=== PATIENT | female | born 1980 | race Caucasian/White ===

== ENCOUNTER 2018-06-22 07:51 | Outpatient (CLI) | payer OTHER, SELFPAY ==
[2018-06-22 07:56] VITALS: BP 109/75; PULSE 80; RESP 18; TEMP 36.3; O2SAT 97
== END 2018-06-22 07:52 ==
PROVIDERS: PCP Internal Medicine; Visit Provider Preventive Medicine Occupational Medicine
DX: M54.12 Radiculopathy, cervical region (principal)

== ENCOUNTER 2018-07-20 10:30 | Outpatient (RCR) | payer OTHER, SELFPAY ==
--- NOTE | 2018-06-21 12:35 | PTTR_ITS ---
DATE: 06/21/18 SUBJECTIVE: Lisa states [facility]. She continues to get relief after sessions, particularly with manual cervical traction, although symptoms typically return that night. She is not sure if she will be receiving further injections or not. She requested a note be sent to Dr. Hedrick prior to her appointment with him tomorrow. OBJECTIVE: Manual therapy: ([id number]). Cervical ROM shows continued limitations in all planes of motion. She does have restrictions into left cervical rotation to 50 , only, compared to 70 to the right with associated superior shoulder and ness scapular pain. She has (+) cervical quadrant test to the left with reproduction of similar symptoms. UE strength testing shows diffuse weakness throughout the UE musculature with 4- /5 for shoulder flexion, abduction, biceps, shoulder internal and external rotation. Gentle manual cervical traction and suboccipital release. Patient received soft tissue mobs and connective tissue mobs throughout the cervical paraspinals. She rec'd connective tissue mobs to the left upper trapezius as well as TP release applied here. This was followed by sustained stretching of the left scalenes and upper trapezius. Therapeutic procedures ([id number]). * x See flow sheet: instruction in early Cervical Stabilization program. She tolerated this well. She was instructed in supine chin tuck with introduction of bug exercises, which she tolerated to only 90 of left shoulder flexion due to increasing shoulder and ness scapular pain. She also completed chin tuck with scapular retraction. Attempted introduction of isometric abduction with yellow t-band resistance, although patient was unable to tolerate this. Instead, simply performed scapular retraction with 10 second holds x10 repetitions within her tolerable range. She will begin completing these at home as wel. Direct treatment time: 30 minutes. SS/gc
--- NOTE | 2018-06-23 16:00 | PTTR_ITS ---
DATE: 06/23/18 SUBJECTIVE: Lisa states she met with Dr. Darby at the pain clinic yesterday. She states that they deferred on further trigger point injections and Dr. Darby insinuated to her that her felt her pain was related to her cervical spine. He has encouraged her to continue with PT, and also discussed options for injections with her. This information will be looked over by her showcase trimmer and she will make a decision from there. In the meantime, she would like to continue with PT intervention. She does get some temporary relief with mobilization, although symptoms return later that day. Manual therapy: ([id number]). Began with manual cervical traction which patient tolerates well. She receives sustained stretching into R sidebending as well as deep tissue mobilization and myofascial release throughout the cervical paraspinals and L upper trap. She received skin rolling techniques and muscle bending along the paraspinals as well as trigger point release to the L paraspinals and L upper trap. She received grade 2 PA mobilizations throughout the lumbar segments followed by further manual cervical traction. She was instructed in wall push ups with verbal and tactile cues for appropriate chin tuck. During completion she is limited scap, thoracic movement on the L. She required tactile cues for appropriate scap/retraction with excellent carry over. Direct treatment time: 30 mins Total treatment time: 30 mins A/P: Will hold on PT next week, as I will be out of the clinic and patient prefers not to see any other providers. Will plan to continue 2x a week after that point. SS/dl
--- NOTE | 2018-06-30 09:50 | PTTR_ITS ---
DATE: 06/30/18 SUBJECTIVE: Ashley states that her shoulder is feeling really good today.She was placed on ibuprofen and an antibiotic for a tooth infection, which she feels has made a big difference in her pain. OBJECTIVE: Manual therapy: ([id number]).Today's session consisted of manual mobilization of the cervical spine. Began in supine position with gentle manual cervical traction and PROM. Pt has significant pain with L rotation. She received PA mobilizations grade III throughout the cervical segments, followed by suboccipital release and DTM throughout the cervical paraspinals and upper traps. She received trigger point release to the L upper trap with good tolerance and to the L posterior scalene. She also received segmental side glides at grade III Post-mobilization, she does report well managed symptoms. Direct treatment time: 30 min Total treatment time: 30 min Assessment/Plan: Pt has a great deal of questions about appropriate activity levels, what she can and cant do, etc... I have encouraged her to increase activity as much as she is able to tolerance. I also do feel that improving active use of the LUE and continuing to introduce exercises for non-painful loading of the UE will be effective at improving muscle strength and reducing her chronic pain levels. SS/fw
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
--- NOTE | 2018-07-07 11:20 | PTTR_ITS ---
DATE: 07/07/18 SUBJECTIVE: Lisa states that her shoulder and arm were very sore after her last session. She has been working on the squats, which she finds challenging but is able to manage. She also tried working with her bow, which she's been unable to do since her injury. She states that it was hard to do, but that she felt good getting back to some of her normal activities. Compliant with HEP: x Yes No OBJECTIVE: Manual therapy: ([id number]): Today's session consisted of manual mobilization of the cervical spine, beginning with gentle manual cervical traction and suboccipital release. She received manual stretching to the left scalenes and levator scap, followed by grade II PA mobs to the cervical segments. She received TrP release to the posterior scalene, where she continues to have significant soft tissue tightness and exacerbation of paresthesias in the LUE. Direct treatment time: 30 minutes Total treatment time: 30 minutes
--- NOTE | 2018-07-11 11:39 | PTTR_ITS ---
DATE: 07/11/18 SUBJECTIVE: Ashley states that overall she is feeling about the same. She does note that she's doing more at home, which she finds promising. She has not heard back about her OTD traction unit yet. Compliant with HEP: x Yes No OBJECTIVE: Manual therapy: ([id number]): Began with gentle manual cervical traction, followed by suboccipital release. Ashley received grade II PA mobs throughout the cervical segments, where she has pain reports, although no significant hypomobility. She continues to have significant soft tissue tightness through the left scalenes and upper trap, where she received DTM. She received TrP release to the posterior scalene and levator scap. This was followed by sidelying passive PNFs within pain tolerance. She was then instructed in NuStep biking at level 0 x 5 minutes, with need for cues for appropriate positioning initially, after which she's able to complete independently. Direct treatment time: 30 minutes Total treatment time: 35 minutes
--- NOTE | 2018-07-13 12:30 | NT_ITS ---
07/13/18 Canc her appt today, no reason given. SS/dl
--- NOTE | 2018-07-20 11:28 | PTTR_ITS ---
DATE: 07/20/18 SUBJECTIVE: Ashley states that she is feeling very uncomfortable. She has been continuing with her HEP, and although the exercises seem to be getting easier, her pain is essentially unchanged. Compliant with HEP: x Yes No OBJECTIVE: Manual therapy: ([id number]): Patient continues to demonstrate significantly increased tone in the left upper trap and levator scap, with hypersensitivity throughout the paraspinals. She received suboccipital release and manual cervical traction, followed by DTM throughout the parascapular musculature. She received TrP release to the left upper trap and levator scap with good tissue softening achieved. She also received grade II PA mobs throughout all cervical segments. Direct treatment time: 30 minutes Total treatment time: 40 minutes, with 8 minutes of NuStep biking at L3
== END 2018-07-21 23:59 | disposition home or self-care (01) ==
LOC: PT 10:30
PROVIDERS: PCP Internal Medicine; Referring Provider Nurse Practitioner Family; Visit Provider Nurse Practitioner Family
DX: M54.2 Cervicalgia (principal); M79.1 Myalgia
CPT/HCPCS: 97110; 97140

== ENCOUNTER 2018-08-29 08:41 | Outpatient (CLI) | payer MEDICAID, SELFPAY ==
--- NOTE | 2018-08-29 06:00 | DI.RAD_ITS ---
SYMPTOMS/DIAGNOSIS: CERVICAL RADICULOPATHY PAIN CLINIC CERVICAL SPINE: Fluoroscopy Time: 22.5 sec Fluoroscopy was utilized by Dr. Darby during the performance of a cervical epidural steroid injection. Please refer to the procedure report for complete details.
[2018-08-29 09:09] VITALS: BP 121/79; PULSE 77; RESP 16; TEMP 36.4; O2SAT 98
[2018-08-29] MEDS: Midazolam 2 MG/2 ML VIAL IVP ×2 (09:34→09:37)
[2018-08-29] MEDS: Lactated Ringers 1,000 ML 80 ML IV (09:36)
[2018-08-29 09:44] VITALS: BP 127/86; PULSE 79; RESP 15; O2SAT 98
--- NOTE | 2018-08-29 09:52 | PDOC.PAIN ---
Pain Clinic Procedure Note Current Active Problems Problem Status Onset Cervical radiculopathy Acute Cervical Epidural Steroid Injection BLUE CHOI has been [facility] for cervical epidural steroid injection. COMMENTS: I did review my evaluation with the patient from 06/22/18. Ms. CHOI was interviewed and the medical record reviewed. There were no medical, pharmacologic, radiographic or other structural contraindications to attempting fluoroscopically guided epidural steroid injection. Risks and expected side effects as well as potential benefit of the procedure were reviewed with Ms. CHOI , and Ms. CHOI voiced concerns addressed. The printed consent form was signed and witnessed. Standard time-out procedure was performed. The patient was placed in the prone position on the fluoroscopy table and automated blood pressure cuff and pulse oximeter applied. The skin entry point for entering the epidural space by a midline C7-T1 interlaminar approach was identified under fluoroscopy and marked. Following thorough Chlorhexadine preparation of the skin and draping and 1% lidocaine infiltration of the skin entry point and subcutaneous tissues, an 18 gauge Tuohy needle was placed under fluoroscopic guidance and with loss of resistance technique into the C7-T1 epidural space. Upon needle placement and loss of resistance there were no paresthesiae or return of blood or CSF through the needle. 1 cc of Omnipaque 240 was injected with clear epidural spread in the A/P, lateral and oblique views. 10 mg of preservative free Dexomethasone was injected with no unusual discomfort expressed by Ms. CHOI. This was flushed with 1 cc of normal saline. Ms. CHOI 's vital signs were stable throughout the procedure and were as recorded in the docflowsheet by the nursing staff. Follow up plans and appointments were discussed with the patient Post procedure instruction was given as documented in nursing documentation and having met discharge criteria, STEPH was [facility] from the [facility]. COMMENTS: This procedure can be completed up to 3 times per 12 months if needed. Lefty Darby DO, MPH ABPMR - Subspecialty Board Certification in Pain Medicine CC: Joshua Grimaldo
[2018-08-29] MEDS: Dexamethasone Sod. Phos./Pres-Free 10 MG/ML VIAL IJ (10:04)
[2018-08-29] MEDS: Omnipaque 240 MG/ML 50 ML BTL IJ (10:05)
== END 2018-08-29 09:01 ==
PROVIDERS: PCP Internal Medicine; Visit Provider Preventive Medicine Occupational Medicine
DX: M54.12 Radiculopathy, cervical region (principal)
CPT/HCPCS: 62321; 72040; J2250; Q9967

== ENCOUNTER 2019-07-26 13:31 | Outpatient (REF) | payer MEDICAID, SELFPAY ==
[2019-07-26 20:00] LABS: BUN 7 mg/dL (7-18); CREATININE 0.91 mg/dL (0.55-1.02); Calcium 8.6 mg/dL (8.5-10.1); Calculated LDL 161 mg/dL; Chloride 103 mmol/L (98-107); Cholesterol 230 mg/dL (50-200); Glucose 95 mg/dL (70-100); HDL Cholesterol 44 mg/dL (40-60); Potassium 4.4 mmol/L (3.5-5.1); Sodium 137 mmol/L (136-145); Triglyceride 127 mg/dL (30-150)
== END 2019-07-26 13:51 ==
LOC: NCHCN 13:31
PROVIDERS: PCP Internal Medicine; Visit Provider Nurse Practitioner Family
DX: E04.1 Nontoxic single thyroid nodule (principal); E87.6 Hypokalemia; Z13.220 Encounter for screening for lipoid disorders
CPT/HCPCS: 80048; 80061; 84443

== ENCOUNTER 2019-09-12 17:54 | Outpatient (REF) | payer MEDICAID, SELFPAY ==
[2019-09-12 20:20] LABS: HCG Qual (Serum) Negative
== END 2019-09-12 18:14 ==
LOC: NCHCN 17:54
PROVIDERS: PCP Internal Medicine; Visit Provider Internal Medicine
DX: F17.200 Nicotine dependence, unspecified, uncomplicated (principal); Z33.1 Pregnant state, incidental
CPT/HCPCS: 84703

== ENCOUNTER 2020-11-03 20:23 | Outpatient (REF) | payer MEDICAID, SELFPAY ==
[2020-11-06 21:22] LABS: COVID-19 RT-PCR Result NEGATIVE (Negative)
== END 2020-11-03 20:43 ==
LOC: NCHCN 20:23
PROVIDERS: PCP Internal Medicine; Visit Provider Nurse Practitioner Family
DX: J06.9 Acute upper respiratory infection, unspecified (principal)
CPT/HCPCS: U0003

== ENCOUNTER 2021-04-08 22:11 | Outpatient (REF) | payer MEDICAID, SELFPAY ==
[2021-04-08 20:47] LABS: Iron 25 ug/dL (50-170); Total Iron Binding Capacity 289 ug/dL (250-450); Transferrin Sat 9 % (15-50)
[2021-04-08 20:54] LABS: Abs Immature Grans 0.03 10^3/uL (0.0-0.06); Absolute Basophil Count 0.08 10^3/uL (0.0-0.2); Absolute Eosinophil Count 0.26 10^3/uL (0.0-0.7); Absolute Monocyte Count 0.57 10^3/uL (0.1-0.8); Absolute Neutrophil Count 5.45 10^3/uL (1.2-6.7); Basophils % 0.9; HCT 42.3 % (36.0-46.0); Immature Grans % 0.3; Lymphocytes % 26.5; MCH 32.1 pg (27.0-33.0); MCHC 33.1 % (32.0-36.0); MPV 10.3 fL (8.0-11.0); Monocytes % 6.6; Neutrophils % 62.7; Nucleated RBC 0 %; Platelet Count 312 10^3/uL (130-400); RBC 4.36 10^6/uL (3.93-5.22); RDW 13.9 % (11.7-14.6); RDW-SD 50.4 fL; WBC 8.69 10^3/uL (4.4-10.8)
[2021-04-08 20:59] LABS: Anion Gap 11.9 mmol/L (3-11); BUN 10 mg/dL (7-18); CO2 23.1 mmol/L (21.0-32.0); CREATININE 0.8 mg/dL (0.55-1.02); Calcium 8.5 mg/dL (8.5-10.1); Chloride 104 mmol/L (98-107); Ferritin 36 ng/mL (8-252); Glucose 94 mg/dL (74-106); LDL CHOLESTEROL 118 mg/dL (<100); Magnesium 2.2 mg/dL (1.8-2.4); Potassium 4.3 mmol/L (3.5-5.1); Sodium 139 mmol/L (136-145)
[2021-04-09 16:18] LABS: Rheumatoid Factor <8.6 IU/mL (<12.0)
[2021-04-10 09:07] LABS: Cyclic Citrullinated Peptide <2.5 U/mL (<5.0)
== END 2021-04-08 22:12 | disposition home or self-care (01) ==
LOC: NCHCN 22:11
PROVIDERS: PCP Internal Medicine; Visit Provider Physician Assistant
DX: R25.2 Cramp and spasm (principal); Z82.61 Family history of arthritis; Z82.49 Family history of ischemic heart disease and other diseases of the circulatory system; R23.8 Other skin changes; R79.89 Other specified abnormal findings of blood chemistry
CPT/HCPCS: 80048; 83721; 86200; 82728; 83540; 83550; 83735; 85025; 86431

== ENCOUNTER 2021-06-01 17:20 | Outpatient (REF) | payer MEDICAID, SELFPAY ==
[2021-06-03 14:12] LABS: COVID-19 RT-PCR UVMMC Result Negative (Negative)
== END 2021-06-01 17:21 | disposition home or self-care (01) ==
LOC: NCHCN 17:20
PROVIDERS: PCP Internal Medicine; Visit Provider Nurse Practitioner Family
DX: J02.9 Acute pharyngitis, unspecified (principal); Z20.822 Contact with and (suspected) exposure to COVID-19
CPT/HCPCS: U0003

== ENCOUNTER 2021-06-30 18:24 | Outpatient (REF) | payer MEDICAID, SELFPAY ==
[2021-07-02 12:30] LABS: COVID-19 RT-PCR UVMMC Result Negative (Negative)
== END 2021-06-30 18:25 | disposition home or self-care (01) ==
LOC: NCHCN 18:24
PROVIDERS: PCP Internal Medicine; Visit Provider Nurse Practitioner Family
DX: Z20.822 Contact with and (suspected) exposure to COVID-19 (principal)
CPT/HCPCS: U0003

== ENCOUNTER 2021-08-07 14:44 | Outpatient (REF) | payer MEDICAID, SELFPAY ==
[2021-08-09 16:10] LABS: COVID-19 RT-PCR UVMMC Result Negative (Negative)
== END 2021-08-07 14:45 | disposition home or self-care (01) ==
LOC: NCHCN 14:44
PROVIDERS: PCP Internal Medicine; Visit Provider Internal Medicine
DX: Z20.822 Contact with and (suspected) exposure to COVID-19 (principal); R05 Cough; R06.2 Wheezing
CPT/HCPCS: U0003

== ENCOUNTER 2021-10-06 12:17 | Outpatient (REF) | payer MEDICAID, SELFPAY ==
[2021-10-08 10:18] LABS: COVID-19 RT-PCR UVMMC Result Negative (Negative)
== END 2021-10-06 12:18 | disposition home or self-care (01) ==
LOC: NCHCN 12:17
PROVIDERS: PCP Internal Medicine; Visit Provider Nurse Practitioner Family
DX: Z20.822 Contact with and (suspected) exposure to COVID-19 (principal); R05.8 Other specified cough
CPT/HCPCS: U0003

== ENCOUNTER 2022-03-12 17:59 | Outpatient (REF) | payer MEDICAID, SELFPAY | END 2022-03-12 18:00 | disposition home or self-care (01) | LOC: NCHCN 17:59 | PROVIDERS: PCP Internal Medicine; Visit Provider Nurse Practitioner Family | DX: J02.9 Acute pharyngitis, unspecified (principal) | CPT/HCPCS: 87070 ==

== ENCOUNTER 2022-11-23 17:48 | Outpatient (REF) | payer MEDICAID, SELFPAY ==
[2022-11-23 19:52] LABS: Anion Gap 5.9 mmol/L (3-11); BUN 6 mg/dL (7-18); CO2 27.1 mmol/L (21.0-32.0); CREATININE 0.9 mg/dL (0.55-1.02); Calcium 8.5 mg/dL (8.5-10.1); Chloride 106 mmol/L (98-107); Estimated GFR 80.84 (mL/min/1.73m2); Glucose 90 mg/dL (74-106); Potassium 4.3 mmol/L (3.5-5.1); Sodium 139 mmol/L (136-145)
[2022-11-27 05:50] LABS: Codeine Negative ng/mL (Cutoff: 25); Dihydrocodeine Negative ng/mL (Cutoff: 25); Hydrocodone Negative ng/mL (Cutoff: 25); Hydromorphone Negative ng/mL (Cutoff: 25); Morphine Negative ng/mL (Cutoff: 25); Naloxone Negative ng/mL (Cutoff: 25); Norhydrocodone Negative ng/mL (Cutoff: 25); Noroxycodone 423 ng/mL (Cutoff: 25); Noroxymorphone Negative ng/mL (Cutoff: 25); Opiates Interpretation Positive.
== END 2022-11-23 17:49 | disposition home or self-care (01) ==
LOC: NCHCN 17:48
PROVIDERS: PCP Nurse Practitioner Family; Visit Provider Nurse Practitioner Family
DX: J44.9 Chronic obstructive pulmonary disease, unspecified (principal); Z92.29 Personal history of other drug therapy; R82.5 Elevated urine levels of drugs, medicaments and biological substances
CPT/HCPCS: 80048; 80361; 80362; 80365

== ENCOUNTER 2022-12-13 19:33 | Outpatient (REF) | payer MEDICAID, SELFPAY ==
[2022-12-20 12:52] LABS: 2-OH-Ethyl-Flurazepam Negative ng/mL (Cutoff: 10); 7-NH-Clonazepam 82 ng/mL (Cutoff: 10); 7-NH-Flunitrazepam Negative ng/mL (Cutoff: 10); Alpha OH-Alprazolam Negative ng/mL (Cutoff: 10); Alpha-OH Midazolam Negative ng/mL (Cutoff: 10); Alpha-OH-Triazolam Negative ng/mL (Cutoff: 10); Alprazolam Negative ng/mL (Cutoff: 10); Benzodiazepines Interpretation Positive.; Chlordiazepoxide Negative ng/mL (Cutoff: 10); Clobazam Negative ng/mL (Cutoff: 10); Clonazepam Negative ng/mL (Cutoff: 10); Diazepam Negative ng/mL (Cutoff: 10); Flurazepam Negative ng/mL (Cutoff: 10); Lorazepam Negative ng/mL (Cutoff: 10); Midazolam Negative ng/mL (Cutoff: 10); N-Desmethylclobazam Negative ng/mL (Cutoff: 10); Prazepam Negative ng/mL (Cutoff: 10); Temazepam Negative ng/mL (Cutoff: 10); Triazolam Negative ng/mL (Cutoff: 10); Zolpidem Carboxylic acid Negative ng/mL (Cutoff: 10)
== END 2022-12-13 19:34 | disposition home or self-care (01) ==
LOC: NCHCN 19:33
PROVIDERS: PCP Nurse Practitioner Family; Visit Provider Nurse Practitioner Family
DX: F32.89 Other specified depressive episodes (principal); F41.8 Other specified anxiety disorders; Z79.899 Other long term (current) drug therapy
CPT/HCPCS: 80346

== ENCOUNTER 2022-12-28 12:18 | Outpatient (REF) | payer MEDICAID, SELFPAY ==
--- NOTE | 2022-12-28 11:30 | PAPFT_PTH ---
PATIENT: Lisa Sims LOC: [facility]#:[id number] AGE/SX: 42/F ROOM: RE12/28/[address]: Joni Go : 1980 BED: DIS: 12/28/2022 SPEC #: [id number] RECD: 12/28/22 18:32 STATUS: MYRTLE REArya #: [id number] IMAN: 12/28/22 11:[address]: Caroline Golaide DEPT: [facility] Cytology RECD BY: Christen Mckee Tissues: 1 - CX/ENDOCX FOR PAP SMEARS Procedures: PAP THIN PREP/UVM Screening HPV DNA PROBE Comments: [id number]
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
[2022-12-28 19:44] LABS: ALT 11 U/L (14-59); AST 16 U/L (15-37); Albumin 3.7 g/dL (3.4-5.0); Alkaline Phosphatase 81 U/L (46-116); Bilirubin, Total 0.2 mg/dL (0.2-1.0); Calculated LDL 160 mg/dL (<100); Cholesterol 230 mg/dL (<200); HDL Cholesterol 53 mg/dL (40-60); Total Protein 7.6 g/dL (6.4-8.2); Triglyceride 85 mg/dL (<150)
[2022-12-28 20:07] LABS: Bilirubin, Direct 0.1 mg/dL (0.0-0.2)
== END 2022-12-28 12:19 | disposition home or self-care (01) ==
LOC: NCHCN 12:18
PROVIDERS: PCP Nurse Practitioner Family; Visit Provider Nurse Practitioner Family
DX: Z12.4 Encounter for screening for malignant neoplasm of cervix (principal); E78.5 Hyperlipidemia, unspecified; A59.01 Trichomonal vulvovaginitis; Z11.51 Encounter for screening for human papillomavirus (HPV)
CPT/HCPCS: 80061; 80076; 88142; 87624

== ENCOUNTER 2023-04-21 12:28 | Outpatient (REF) | payer MEDICAID, SELFPAY ==
[2023-04-21 19:15] LABS: Anion Gap 9.8 mmol/L (3-11); BUN 9 mg/dL (7-18); CO2 24.2 mmol/L (21.0-32.0); CREATININE 0.9 mg/dL (0.55-1.02); Calcium 8.8 mg/dL (8.5-10.1); Chloride 104 mmol/L (98-107); Estimated GFR 80.34 (mL/min/1.73m2); Glucose 108 mg/dL (74-106); Potassium 4.7 mmol/L (3.5-5.1); Sodium 138 mmol/L (136-145)
== END 2023-04-21 12:29 | disposition home or self-care (01) ==
LOC: NCHCN 12:28
PROVIDERS: PCP Nurse Practitioner Family; Visit Provider Nurse Practitioner Family
DX: E78.5 Hyperlipidemia, unspecified (principal); E66.8 Other obesity
CPT/HCPCS: 80048

== ENCOUNTER 2023-06-21 16:27 | Outpatient (REF) | payer MEDICAID, SELFPAY ==
[2023-07-03 01:35] LABS: 2-OH-Ethyl-Flurazepam Negative ng/mL (Cutoff: 10); 7-NH-Clonazepam 476 ng/mL (Cutoff: 10); 7-NH-Flunitrazepam Negative ng/mL (Cutoff: 10); Alpha OH-Alprazolam Negative ng/mL (Cutoff: 10); Alpha-OH Midazolam Negative ng/mL (Cutoff: 10); Alpha-OH-Triazolam Negative ng/mL (Cutoff: 10); Alprazolam Negative ng/mL (Cutoff: 10); Benzodiazepines Interpretation Positive.; Chlordiazepoxide Negative ng/mL (Cutoff: 10); Clobazam Negative ng/mL (Cutoff: 10); Clonazepam 19 ng/mL (Cutoff: 10); Diazepam Negative ng/mL (Cutoff: 10); Flurazepam Negative ng/mL (Cutoff: 10); Lorazepam Negative ng/mL (Cutoff: 10); Midazolam Negative ng/mL (Cutoff: 10); N-Desmethylclobazam Negative ng/mL (Cutoff: 10); Prazepam Negative ng/mL (Cutoff: 10); Temazepam Negative ng/mL (Cutoff: 10); Triazolam Negative ng/mL (Cutoff: 10); Zolpidem Carboxylic acid Negative ng/mL (Cutoff: 10)
== END 2023-06-21 16:28 | disposition home or self-care (01) ==
LOC: NCHCN 16:27
PROVIDERS: PCP Nurse Practitioner Family; Visit Provider Nurse Practitioner Family
DX: F41.8 Other specified anxiety disorders (principal); Z51.81 Encounter for therapeutic drug level monitoring; Z79.899 Other long term (current) drug therapy
CPT/HCPCS: 80346

== ENCOUNTER 2023-06-24 12:54 | Outpatient (REF) | payer MEDICAID, SELFPAY ==
[2023-06-24 13:06] LABS: Abs Immature Grans 0.03 10^3/uL (0.0-0.06); Absolute Eosinophil Count 0.36 10^3/uL (0.0-0.7); Absolute Lymphocyte Count 1.37 10^3/uL (1.2-3.4); Absolute Monocyte Count 0.56 10^3/uL (0.1-0.8); Absolute Neutrophil Count 5.27 10^3/uL (1.2-6.7); Basophils % 1.3; Eosinophils % 4.7; HCT 42.3 % (36.0-46.0); HGB 13.8 g/dL (11.2-15.7); Immature Grans % 0.4; Lymphocytes % 17.8; MCH 30.5 pg (27.0-33.0); MCHC 32.6 % (32.0-36.0); MCV 93 fL (80-95); Monocytes % 7.3; Neutrophils % 68.5; Platelet Count 337 10^3/uL (130-400); RBC 4.53 10^6/uL (3.93-5.22); RDW 15.1 % (11.7-14.6); WBC 7.69 10^3/uL (4.4-10.8)
[2023-06-27 08:14] LABS: IgE 38 IU/mL (<158)
== END 2023-06-24 12:55 | disposition home or self-care (01) ==
LOC: LBN 12:54
PROVIDERS: PCP Nurse Practitioner Family; Visit Provider Student in an Organized Health Care Education/Training Program
DX: J45.909 Unspecified asthma, uncomplicated (principal)
CPT/HCPCS: 82785; 85025

== ENCOUNTER 2024-05-02 13:09 | Outpatient (REF) | payer MEDICAID, SELFPAY ==
[2024-05-02 22:12] LABS: Hemoglobin A1C 5.6 % (<5.7)
[2024-05-02 22:29] LABS: ALT 17 U/L (14-59); AST 14 U/L (15-37); Albumin 3.7 g/dL (3.4-5.0); Alkaline Phosphatase 90 U/L (46-116); Anion Gap 9.3 mmol/L (3-11); BUN 6 mg/dL (7-18); Bilirubin, Total 0.3 mg/dL (0.2-1.0); CO2 23.7 mmol/L (21.0-32.0); CREATININE 0.9 mg/dL (0.55-1.02); Calcium 8.5 mg/dL (8.5-10.1); Calculated LDL 188 mg/dL (<100); Chloride 104 mmol/L (98-107); Cholesterol 262 mg/dL (<200); Estimated GFR 79.85 (mL/min/1.73m2); Glucose 97 mg/dL (74-106); HDL Cholesterol 59 mg/dL (40-60); Potassium 4.6 mmol/L (3.5-5.1); Sodium 137 mmol/L (136-145); Total Protein 7.7 g/dL (6.4-8.2); Triglyceride 78 mg/dL (<150)
== END 2024-05-02 13:10 | disposition home or self-care (01) ==
LOC: NCHCN 13:09
PROVIDERS: PCP Nurse Practitioner Family; Visit Provider Nurse Practitioner Family
DX: E78.5 Hyperlipidemia, unspecified (principal); E66.9 Obesity, unspecified
CPT/HCPCS: 80053; 80061; 83036

== ENCOUNTER 2024-08-06 15:57 | Outpatient (REF) | payer MEDICAID, SELFPAY ==
[2024-08-06 20:06] LABS: Calculated LDL 159 mg/dL (<100); Cholesterol 240 mg/dL (<200); HDL Cholesterol 58 mg/dL (40-60); Triglyceride 116 mg/dL (<150)
== END 2024-08-06 15:58 | disposition home or self-care (01) ==
LOC: NCHCN 15:57
PROVIDERS: PCP Nurse Practitioner Family; Visit Provider Nurse Practitioner Family
DX: E78.5 Hyperlipidemia, unspecified (principal); S81.812A Laceration without foreign body, left lower leg, initial encounter; A59.00 Urogenital trichomoniasis, unspecified; X58.XXXA Exposure to other specified factors, initial encounter
CPT/HCPCS: 80061; 87070; 87205; 87480; 87510; 87660

== ENCOUNTER 2024-12-11 12:48 | Emergency (ER) | payer MEDICAID, SELFPAY ==
[2024-12-11 12:50] VITALS: BP 140/90; PULSE 81; RESP 18; TEMP 37.1; O2SAT 94
--- NOTE | 2024-12-11 13:00 | DI.RAD_ITS ---
Exam(s) XR HIP LT COMPLETE AP PELVIS EXAM: XR HIP LT COMPLETE AP PELVIS CLINICAL HISTORY: L hip pain. TECHNIQUE: 2D digital imaging was performed. COMPARISON: No exams were available for comparison FINDINGS: 3 views No evidence of pelvic nor hip fracture. However, there is asymmetric degenerative narrowing of the l eft hip joint space. There are also marginal osteophytes on the left femoral head. Some calcificati on is noted in the capsule lateral capsule the opposite-right hip. However, the right hip joint spac e appears relatively preserved. Also at the right ischial tuberosity hamstrings attachment site. Sacroiliac joints appear unremarkable. IMPRESSION: Significant degenerative changes in the left hip joint. DATA REPOSITORY: RADIATION DOSE DELIVERED:
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
[2024-12-11] MEDS: Acetaminophen 500 MG TAB 1000 MG PO (14:39)
[2024-12-11] MEDS: Lidocaine 5% Patch 1 PATCH TP (14:40)
[2024-12-11] MEDS: Ketorolac 10 MG TAB PO (14:40)
== END 2024-12-11 14:43 | disposition home or self-care (01) ==
PROVIDERS: Emergency Provider Physician Assistant; PCP Nurse Practitioner Family
DX: M25.552 Pain in left hip (principal); J44.9 Chronic obstructive pulmonary disease, unspecified; E78.5 Hyperlipidemia, unspecified
CPT/HCPCS: 99283; 73502